=== PATIENT | female | born 1980 | race Caucasian/White ===

== ENCOUNTER → 2018-11-10 | Outpatient (CLI) | payer BC ==
[~2018-11-10] MED LIST: ABILIFY 15MG TA15 MG PO; ADDERALL20 MG PO; ADDERALL30 MG PO; ADIPEX-P37.5 M1 PO; ERY-TAB250 M1 PO; FOLIC ACID 11 MG/TA1 PO; LAMICTAL150 MG PO; LEVOXYL0.025 MG PO; LEXAPRO20 MG PO; NUVIGIL250 MG PO; ORTHO-NOVUM 7/71 TAB PO; PRILOSEC 20MG20 MG PO; VIIBRYD10 MG PO; ZOFRAN 4MG T4 MG/TAB PO; ZOFRAN ODT4 MG PO
== END ==
LOC: MC.RAD 09:36
DX: Z12.31 Encounter for screening mammogram for malignant neoplasm of breast (principal); N63.10 Unspecified lump in the right breast, unspecified quadrant; Z98.82 Breast implant status

== ENCOUNTER → 2018-11-15 | Outpatient (CLI) | payer BC | LOC: MC.RAD 13:52 | DX: N63.10 Unspecified lump in the right breast, unspecified quadrant (principal); Z98.82 Breast implant status ==

== ENCOUNTER → 2019-12-03 | Outpatient (CLI) | payer BC | LOC: COL.RAD 10:09 | DX: R10.11 Right upper quadrant pain (principal); R14.0 Abdominal distension (gaseous) ==

== ENCOUNTER → 2020-03-05 | Outpatient (CLI) | payer BC | LOC: COL.RAD 06:49 | DX: R11.0 Nausea (principal); R10.13 Epigastric pain; R14.0 Abdominal distension (gaseous); R10.9 Unspecified abdominal pain; R19.5 Other fecal abnormalities | CPT/HCPCS: A9537; J2805 ==

== ENCOUNTER → 2020-03-31 | Outpatient (CLI) | payer BC | LOC: MC.RAD 11:38 | DX: Z12.31 Encounter for screening mammogram for malignant neoplasm of breast (principal); Z98.82 Breast implant status ==

== ENCOUNTER → 2021-02-10 | Outpatient (CLI) | payer BC | LOC: COL.RAD 02-05 08:00 | DX: R10.13 Epigastric pain (principal); R14.0 Abdominal distension (gaseous) | CPT/HCPCS: A9541 ==

== ENCOUNTER → 2021-04-07 | Outpatient (CLI) | payer BC | LOC: MC.RAD 09:47 | DX: Z12.31 Encounter for screening mammogram for malignant neoplasm of breast (principal); N64.89 Other specified disorders of breast ==

== ENCOUNTER → 2021-04-09 | Outpatient (CLI) | payer BC | LOC: MC.RAD 14:51 | DX: N64.9 Disorder of breast, unspecified (principal); Z98.82 Breast implant status; Z80.3 Family history of malignant neoplasm of breast; N64.89 Other specified disorders of breast ==

== ENCOUNTER → 2021-12-01 | Outpatient (CLI) | payer BC ==
[~2021-12-01] MED LIST changes: +NORCO 325 MG-51 TAB PO
== END ==
LOC: COL.RAD 07:23
DX: R10.13 Epigastric pain (principal); R11.0 Nausea

== ENCOUNTER 2021-12-02 00:54 | Emergency (ER) | payer BC ==
[~2021-12-02 00:54] MED LIST changes: -NORCO 325 MG-51 TAB PO
[2021-12-02 01:30] VITALS: TEMP 98.1
[2021-12-02 02:10] LABS: BASO # 0.1 K/mm3 (0.0-0.2); BASO % 0.4 % (0.0-2.0); EOS # 0.2 K/mm3 (0.0-0.7); EOS % 1.8 % (0.0-4.0); GRAN # 7.4 K/mm3 (1.4-6.5); HEMATOCRIT 37.9 % (37.0-47.0); HEMOGLOBIN 12.9 g/dl (12.5-16.0); LYMPH # 2.9 K/mm3 (1.2-3.4); LYMPH % 25.2 % (20.0-51.0); MEAN CELL VOLUME 89 fl (80.0-100.0); MEAN CORPUSCULAR HEMOGLOBIN 30 pg (27-31); MEAN CORPUSCULAR HGB CONC 34 g/dl (33.0-37.0); MEAN PLATELET VOLUME 10.4 fl (7.4-10.4); MONO # 0.8 K/mm3 (0.1-0.6); PLATELET COUNT 227 K/mm3 (130-400); RED BLOOD COUNT 4.28 M/mm3 (4.10-5.30); REDCELL DISTRIBUTION WIDTH-CV 12.8 % (11.5-14.5)
[2021-12-02 02:28] LABS: ALBUMIN 3.6 gm/dL (3.5-5.0); BILIRUBIN,TOTAL 0.5 mg/dL (0.2-1.2); CALCIUM 8.7 mg/dL (8.4-10.2); CREATININE, serum 0.82 mg/dL (0.57-1.11); POTASSIUM 3.8 mmol/L (3.5-4.5); TOTAL PROTEIN 6.2 gm/dL (6.2-8.1)
[2021-12-02] MEDS ORDERED: NORCO 325 MG-51 TAB PO (04:13)
[2021-12-02 04:24] VITALS: BP 113/88; PULSE 72
== END 2021-12-02 04:24 | disposition home or self-care (01) ==
LOC: COL.ER 00:54
PROVIDERS: Personal Emergency Response Attendant
DX: R05.9 Cough, unspecified (principal)
CPT/HCPCS: C9113; J2270; J2405; J7030; Q9967

== ENCOUNTER → 2021-12-16 | Outpatient (CLI) | payer BC ==
[~2021-12-16] MED LIST changes: +NORCO 325 MG-51 TAB PO
== END ==
LOC: COL.RAD 07:10
DX: E04.2 Nontoxic multinodular goiter (principal)

== ENCOUNTER → 2022-05-04 | Outpatient (CLI) | payer BC | LOC: MC.RAD 04-09 07:15 | DX: Z12.31 Encounter for screening mammogram for malignant neoplasm of breast (principal) ==

== ENCOUNTER 2022-10-19 15:10 | Inpatient (IN) | payer BC ==
[~2022-10-19] VITALS: Ht 160 cm; Wt 60.6 kg
[2022-10-27] VITALS (11 sets, daily range): BP systolic 113–137; BP diastolic 81–93; PULSE 77–113; TEMP 98.1
[2022-10-27] MEDS ORDERED: PROBIOTIC DIGE1 EACH PO (07:40)
[2022-10-27] MEDS ORDERED: PRIL40 PO (07:40)
[2022-10-27] MEDS ORDERED: PAMELOR50 MG PO (07:41)
[2022-10-27] MEDS ORDERED: ZESTORETIC 12.51 TA1 PO (07:41)
[2022-10-27] MEDS ORDERED: CARAFATE 1GM1 G PO (07:42)
[2022-10-27] MEDS ORDERED: PHENERGAN 25 TA25 MG PO (07:42)
[2022-10-27] MEDS ORDERED: BENTYL 20MG20 MG/TAB PO (07:43)
[2022-10-27] MEDS ORDERED: INDERAL 20MG20 MG PO (07:44)
[2022-10-27 08:06] LABS: BASO # 0.1 K/mm3 (0.0-0.2); BASO % 0.7 % (0.0-2.0); EOS # 0.2 K/mm3 (0.0-0.7); EOS % 2.9 % (0.0-4.0); GRAN # 5.1 K/mm3 (1.4-6.5); GRAN % 67.4 % (42.2-75.2); HEMOGLOBIN 15.6 g/dl (12.5-16.0); LYMPH # 1.7 K/mm3 (1.2-3.4); MEAN CELL VOLUME 86 fl (80.0-100.0); MEAN CORPUSCULAR HEMOGLOBIN 30 pg (27-31); MEAN CORPUSCULAR HGB CONC 35 g/dl (33.0-37.0); MEAN PLATELET VOLUME 11.5 fl (7.4-10.4); MONO # 0.5 K/mm3 (0.1-0.6); MONO % 6.9 % (1.7-9.3); PLATELET COUNT 231 K/mm3 (130-400); RED BLOOD COUNT 5.23 M/mm3 (4.10-5.30); REDCELL DISTRIBUTION WIDTH-CV 11.6 % (11.5-14.5)
[2022-10-27 08:27] LABS: CALCIUM 9.2 mg/dL (8.4-10.2); CREATININE, serum 0.85 mg/dL (0.57-1.11); POTASSIUM 3.3 mmol/L (3.5-4.5)
--- NOTE | 2022-10-27 14:30 | NUR ---
PATIENT BROUGHT TO FLOOR AT 1230. PATIENT DROWSY BUT AROUSABLE. PATIENT DENIES PAIN AT TIME OF ARRIVAL. POST OP VITALS BEGAN.
--- NOTE | 2022-10-27 14:31 | NUR ---
PATIENT UP AND ALERT. PATIENT REPORTS PAIN RATING 3/10. SCHEDULED TYLENOL GIVEN. POST OP VITALS CONTINUE TO RUN. CLEAR LIQUID TRAY ORDERED. PATIENT RESTING IN BED WITH CALL LIGHT NEAR.
--- NOTE | 2022-10-27 16:16 | NUR ---
PATIENT AMBULATING IN HALLS. PATIENT OFF OF POST OPS AND HANDLING PAIN WELL AT THIS POINT.
--- NOTE | 2022-10-27 21:00 | NUR ---
pt resting in bed, family/friend at bedside. reports having some abdominal pain, ibuprofen given per emar. reports belching and voiding without difficulty. denies passing gas and having a bm. has been up ambulating in the halls. bowel sounds are audible x4 quadrants. lap sites and transverse incisions are cdi. int to left hand. call light in reach. no needs at this time.
[2022-10-28 03:24] VITALS: BP 114/72; PULSE 85; TEMP 97.8
[2022-10-28 06:37] LABS: HEMATOCRIT 31.6 % (37.0-47.0)
[2022-10-28 06:39] LABS: HEMOGLOBIN 10.7 g/dl (12.5-16.0)
[2022-10-28 06:54] LABS: CALCIUM 8.4 mg/dL (8.4-10.2); CREATININE, serum 0.77 mg/dL (0.57-1.11); MAGNESIUM 1.9 mg/dL (1.6-2.6); PHOSPHOROUS 3.5 mg/dL (2.3-4.7); POTASSIUM 3.8 mmol/L (3.5-4.5)
[2022-10-28 07:51] VITALS: BP 121/80; PULSE 87; TEMP 97.7
--- NOTE | 2022-10-28 09:20 | NUR ---
[employer] Sales Associate met with patient to discuss discharge planning. Patient lives in [place] and advised she has 50/50 custody of her two children, ages 15 and 16[address] Whitlock for primary care and obtains medications from [facility] with no difficulties. Patient does not use any DME and is independent with ADLS. Patient stated her DPOA-HC is her mother, Lenora who is at bedside. Patient plans to return home at time of discharge. Discharge Plan: Home
--- NOTE | 2022-10-28 09:57 | NUR ---
PATIENT ALERT AND ORIENTED X4. VSS. PATIENT HERE FOR RIGHT ROBOTIC HEMICOLECTOMY. LAP SITES X3 CDI. LOW TRANSVERSE CDI. PATIENT DENIES PAIN. BOWEL SOUNDS ACTIVE. PATIENT DENIES PASSING GAS. CALL LIGHT WITHIN REACH.
--- NOTE | 2022-10-28 10:35 | NUR ---
Initial visit; Patient thanked Manager Crisis for looking in on her and offering God's blessings. Her Mom was with her and thanked Manager Crisis for visit also. let Elsa know that she will be visited by someone from the [employer] most likely today. She thanked Manager Crisis.
[2022-10-28 11:33] VITALS: BP 115/74; PULSE 88; TEMP 97.7
[2022-10-28 16:25] VITALS: BP 109/72; PULSE 87; TEMP 97.5
--- NOTE | 2022-10-28 20:11 | NUR ---
pt resting in bed. reports pain in abdomen a 6/10, medicated with oxycodone per emar. incisions are cdi. bowel sounds are present. pt reports passing gas and having bowel movements. tolerating diet without nausea. int to left hand. call light in reach. no needs at this time.
[2022-10-28 20:47] VITALS: BP 95/63; PULSE 90; TEMP 97.7
[2022-10-28 23:33] VITALS: BP 99/53; PULSE 99; TEMP 98
[2022-10-29 03:49] VITALS: BP 96/66; PULSE 92; TEMP 98.2
--- NOTE | 2022-10-29 06:21 | NUR ---
pt reports that her pain is better this morning. denies needs. call light in reach.
[2022-10-29 06:50] VITALS: BP 104/70; PULSE 100; TEMP 97.4
[2022-10-29 07:12] LABS: HEMATOCRIT 29.4 % (37.0-47.0); HEMOGLOBIN 9.8 g/dl (12.5-16.0)
[2022-10-29] MEDS ORDERED: NORCO 325 MG-51 TAB PO (08:17)
--- NOTE | 2022-10-29 08:44 | NUR ---
Pt doing well this morning. During shift change she reported that she was woke up around 4:30 and hasn't been able to go back to sleep. Pain tolerable. Pt has been up walking the halls independently. Dr Gallegos has been around, discharge orders entered. Pt now resting with her eyes closed, even non labored breathing. Pt does have family in the room with her
--- NOTE | 2022-10-29 08:52 | NUR ---
9934 assessment done. Patient reported being tired, and pain level at 3 on the numeric scale. Patient was agreeable and tolerates moving around and standing up. call light within reach. will keep monitoring.
--- NOTE | 2022-10-29 09:30 | NUR ---
Pt doing well, discussed discharge instructions with her and family. Pt verbalized understanding. Discussed pain medication/management and follow up appointment. INT removed by [employer] RN student. Pt escorted out at this time
== END 2022-10-29 09:30 | disposition home or self-care (01) | DRG 330 ==
LOC: INPTSU 10-27 07:00 → SURG 10-27 09:00
PROVIDERS: ADMIT Surgery
PROC: 8E0W4CZ Robotic Assisted Procedure of Trunk Region, Percutaneous Endoscopic Approach (ICD-10-PCS; 2022-10-27)
PROC: 0DTF4ZZ Resection of Right Large Intestine, Percutaneous Endoscopic Approach (ICD-10-PCS; principal; 2022-10-27 09:00)
DX: K56.2 Volvulus (principal); D62 Acute posthemorrhagic anemia; I10 Essential (primary) hypertension; K21.9 Gastro-esophageal reflux disease without esophagitis; F90.9 Attention-deficit hyperactivity disorder, unspecified type; F32.A Depression, unspecified; E86.0 Dehydration; Z88.0 Allergy status to penicillin; Z91.040 Latex allergy status; Z86.16 Personal history of COVID-19; Z23 Encounter for immunization
CPT/HCPCS: OP; A4314; A9284; J0690; J1100; J1885; J2250; J2405; J2550; J2704; J2795; J3010; J7120

== ENCOUNTER → 2024-05-11 | Outpatient (CLI) | payer BC ==
[~2024-05-11] MED LIST changes: +BENTYL 20MG20 MG/TAB PO; +CARAFATE 1GM1 G PO; +INDERAL 20MG20 MG PO; +PAMELOR50 MG PO; +PHENERGAN 25 TA25 MG PO; +PRIL40 PO; +PROBIOTIC DIGE1 EACH PO; +ZESTORETIC 12.51 TA1 PO
== END ==
LOC: MC.RAD 07:33
DX: Z12.31 Encounter for screening mammogram for malignant neoplasm of breast (principal)